=== PATIENT | female | born 1960 | race Caucasian/White ===

== ENCOUNTER → 2016-08-19 | Outpatient (CLI) | payer OTHER ==
[~2016-08-19] MED LIST: CELEXA20 MG PO; COUMADIN4 MG PO; DISCONTINUED MED XX; FENOFIBRATE160 MG PO; HYDROCODON-ACE1 EAC7 PO; LEVOTHYROXINE50 MCG PO; METFORMIN HCL500 M1 PO; MULTIPLE VITAMI1 T11 PO; NAPROSYN500 MG PO; PRAVASTATIN SOD40 MG PO
--- NOTE | ~2016-08-19 | MY11 ---
[facility] A Service of [facility] RADIOLOGY TEXT RESULTS PATIENT: SHELLEY CARTWRIGHT LOCATION: [facility] : 62 UNIT #: [id number] AGE: [address]: Andrew Nunez MD SEX: F ORDER DR: [id number] [facility] [address] [place], [place] [address] [id number] O MR#: [id number] Acc #: [id number] NAME: SHELLEY CARTWRIGHT : 1960 SEX: F STUDY DATE/TIME: 08/19/2016 13:31 UNIT: [facility] ROOM: STUDY DESCRIPTION: MY Mammogram Screening Dig Taj Attending Physician: Andrew Nunez Jr., M.D. Ordering Physician: Andrew Nunez Jr., M.D. Primary Care Physician: Andrew Nunez Jr., M.D. MEDICAL IMAGING REPORT This report is preliminary unless electronic signature is present EXAM Bilateral Digital Screening Mammogram with CAD INDICATION Breast cancer screening. 55-year-old asymptomatic female. No personal or family history of breast cancer. COMPARISON 10/20/2014, 04/06/2012, 06/06/2011, 05/29/2011, 07/26/2008, 05/18/2007 FINDINGS There are scattered fibroglandular tissues. No suspicious findings are present. IMPRESSION No mammographic evidence of malignancy. Annual screening mammography and clinical breast exam are recommended. A result letter will be sent to the patient. Patients over the age of 40 are entered into a reminder system with target due date for the next mammogram. BIRADS: 1 Negative Dictated by... Eddie Gutierrez M.D. THIS IS AN ELECTRONICALLY VERIFIED REPORT Eddie Gutierrez M.D. at 08/21/2016 11:01 AM BLM/to [facility] A Service of [facility] RADIOLOGY TEXT RESULTS PATIENT: SHELLEY CARTWRIGHT LOCATION: [facility] : 62 UNIT #: [id number] AGE: [address]: Andrew Nunez MD SEX: F ORDER DR: TD: 08/19/2016 17:58 JOB #: [id number] MEDICAL IMAGING REPORT Page 1 of 1 COPY
== END | disposition home or self-care (01) ==
LOC: CWCC 13:04
DX: Z12.31 Encounter for screening mammogram for malignant neoplasm of breast (principal)
CPT/HCPCS: G0202